=== PATIENT | male | born 1955 | race Caucasian/White ===

== ENCOUNTER → 2021-12-09 16:45 | Outpatient (CLI) | payer BC, SELFPAY ==
--- NOTE | 2021-12-09 16:52 | XR_ITS ---
PROCEDURE INFORMATION: Exam: XR Left Foot Complete; Alignment Exam date and time: 12/09/21 04:53 PM Age: 66 years old Clinical indication: Pain; Foot; Left; Additional info: Pain, hammertoes TECHNIQUE: Imaging protocol: Radiologic exam of the Left foot. Views: 3 or more views. COMPARISON: No relevant prior studies available. FINDINGS: Bones/joints: Hammertoe deformity left 2nd, 3rd, and 4th digits. Osteoarthritic changes in the midfoot and ankle. Soft tissues: Normal. IMPRESSION: 1. Hammertoe deformity left 2nd, 3rd, and 4th digits. 2. Osteoarthritic changes in the midfoot and ankle.
--- NOTE | 2021-12-09 16:52 | XR_ITS ---
PROCEDURE INFORMATION: Exam: XR Right Foot Complete; Alignment Exam date and time: 12/09/21 04:53 PM Age: 66 years old Clinical indication: Pain; Foot; Right; Additional info: Pain, hammertoes TECHNIQUE: Imaging protocol: Radiologic exam of the Right foot. Views: 3 or more views. COMPARISON: No relevant prior studies available. FINDINGS: Bones/joints: Hammertoe deformity 2nd and 3rd PIP joints. Soft tissues: Normal. IMPRESSION: Hammertoe deformity 2nd and 3rd PIP joints.
== END ==
PROVIDERS: PCP Family Medicine; Visit Provider Podiatrist
DX: M79.672 Pain in left foot (principal); M79.671 Pain in right foot; M20.42 Other hammer toe(s) (acquired), left foot; M20.41 Other hammer toe(s) (acquired), right foot
CPT/HCPCS: 73630

== ENCOUNTER → 2021-12-13 10:25 | Outpatient (CLI) | payer BC, SELFPAY ==
--- NOTE | 2021-12-13 10:32 | XR_ITS ---
FINAL REPORT CLINICAL HISTORY: PREOP TESTING FINDINGS: PA and lateral views of the chest are obtained. There is no prior exam for comparison. The cardiac and mediastinal silhouettes are within normal limits. The lungs are clear. There is no pleural effusion, pneumothorax, or acute osseous abnormality. IMPRESSION: No radiographic evidence of acute cardiac or pulmonary disease. Reviewed, Interpreted and Dictated by Shaneka Valencia MD Transcribed by Eileen Arellano Authenticated and [facility]
--- NOTE | 2021-12-13 11:14 | ECG_ITS ---
APPROVED REPORT Exam: Resting ECG HR:52 bpm ECG Measurements Heart Rate 52 AXES CA 214 P 86 QRSd 107 QRS 44 QT 429 T 58 QTc 408 Conclusion SINUS BRADYCARDIA WITH FIRST DEGREE AV BLOCK ABNORMAL ECG UNCONFIRMED REPORT Electronically signed by : Bryan Baker MD 12/14/2021 21:09:21
[2021-12-13 11:20] LABS: Basophils # 0.1 K/mm3 (0-0.2); Basophils % 0.7 % (0.1-2.0); Eosinophils # 0.5 K/mm3 (0.0-0.4); Eosinophils % 6.7 % (0.1-12.0); Hemoglobin 14.6 g/dL (14.1-18.0); Lymphocytes % 26.4 % (10-50); Mean Corpuscular HGB Conc 33.3 g/dL (31.8-35.4); Mean Corpuscular Hemoglobin 29.9 pg (27.0-31.2); Mean Corpuscular Volume 89.9 fl (80-94); Mean Platelet Volume 7.3 fl (7.4-10.4); Monocytes # 0.6 K/mm3 (0.1-1.0); Monocytes % 7.4 % (1.7-9.3); Neutrophils # 4.4 K/mm3 (1.8-7.8); Neutrophils % 58.7 % (37.0-80.0); Platelet Count 251 K/mm3 (142-424); Red Blood Count 4.89 M/mm3 (4.60-6.20); Red Cell Distribution Width 12.6 % (11.5-17.5); White Blood Count 7.6 K/mm3 (4.8-10.8)
[2021-12-13 11:39] LABS: Chloride 105 mmol/L (98-107); Potassium 4.2 mmoL/L (3.5-5.1); Sodium 138 mmol/L (136-145)
[2021-12-13 11:41] LABS: Blood Urea Nitrogen 21 mg/dl (9-20); Estimated Glomerular Filt Rate 113 ml/min (>60); GFR (African American) 137 ML/MIN (>60)
[2021-12-13 11:42] LABS: Alanine Aminotransferase 40 U/L (12-78); Albumin Level 4.2 g/dl (3.5-5.0); Albumin/Globulin Ratio 1.6 (1.1-1.8); Alkaline Phosphatase 55 U/L (38-126); Anion Gap 10.2 mEq/L (5-15); Aspartate Amino Transferase 39 U/L (17-59); Bilirubin,Total 0.5 mg/dl (0.2-1.3); Carbon Dioxide 27 mmol/L (22.0-30.0); Globulin 2.6 g/dL (1.3-3.2); Total Protein,Serum 6.8 g/dl (6.3-8.2)
[2021-12-13 11:48] LABS: Glucose 175 mg/dl (74-100)
[2021-12-13 11:56] LABS: Hemoglobin A1C 6.6 % (4.0-6.0)
[2021-12-13 11:58] LABS: Calcium 9.5 mg/dl (8.4-10.2)
== END ==
PROVIDERS: PCP Family Medicine; Visit Provider Podiatrist
DX: Z01.818 Encounter for other preprocedural examination (principal); M20.41 Other hammer toe(s) (acquired), right foot; M20.42 Other hammer toe(s) (acquired), left foot
CPT/HCPCS: 36415; 71046; 80053; 83036; 85025; 93005

== ENCOUNTER → 2021-12-16 07:43 | Outpatient (CLI) | payer BC, SELFPAY ==
--- NOTE | 2021-12-16 07:45 | US_ITS ---
FINAL REPORT CLINICAL HISTORY: PRE-OP FOR HAMMER TOE SURGERY,DM,BILATERAL REST PAIN,DECREASED PULSES,SKIN COLOR CHANGES,HTN FINDINGS: ANKLE-BRACHIAL PRESSURE INDICES Pressure indices are as follows: RIGHT LOWER EXTREMITY: Ankle-brachial pressure index: 1.31 LEFT LOWER EXTREMITY: Ankle-brachial pressure index: 1.28 CONCLUSION: No evidence of significant obstructive peripheral vascular disease of the lower extremities. Reviewed, Interpreted and Dictated by Shaneka Valencia MD Transcribed by Charissa Saeed Authenticated and [facility]
== END ==
PROVIDERS: PCP Family Medicine; Visit Provider Podiatrist
DX: Z01.818 Encounter for other preprocedural examination (principal)
CPT/HCPCS: 93923

== ENCOUNTER → 2021-12-23 11:54 | Outpatient (CLI) | payer BC, SELFPAY ==
--- NOTE | 2021-12-23 11:54 | NM_ITS ---
APPROVED REPORT Exam: Nuclear Stress Test Indication: HTN, DM, Family history, Pre op Patient Location: Outpatient Stress Tech: Zulma Garces [place] Tech:RUPINDER Antunez RT(R)(N) Ht: 5 ft 11 in Wt: 235 lbs HR: 60 bpm BP: 146/95 mmHg BSA: 2.26 m2 TID: 1.03 BMI: 32.7 History: HTN, DM, Family history, Pre op Procedure: Patient received a 0.4 mg of intravenous Lexiscan, resting heart rate 60 bpm, resting blood pressure 146/95 mmHg, with Lexiscan maximum heart rate achived was 69 bpm which is Less than 85 % of the maximum predicted heart rate and blood pressure was 148/80 mmHg. With Lexiscan, patient denied any complaint of chest pain. Electrocardiogram Resting electrocardiogram sinus rhythm, with Lexiscan there is less than 1.[address] segment depression noted from the baseline EKG. The EKG portion of the Lexiscan is nondiagnostic. Cardiac Stress and Resting SPECT Images: Cardiac Stress and Resting SPECT images were obtained using technetium 99m Myoview 32.8 mCi stress and 10.10 mCi at rest. Gated SPECT analysis of segmental wall motion and calculation of the ejection fraction also done. Prone images were also obtained. Cardiac stress and rest SPECT images show uniform myocardial activity without segmental perfusion abnormality, computer derived ejection fraction is 55% with no regional wall motion abnormality, right ventricle is normal size and contractility. Conclusion: 1. The EKG portion of the Lexiscan is nondiagnostic. 2. No scintigraphic evidence of reversible ischemia seen, compared to ejection fraction 55% with no regional wall motion abnormality, right ventricle is normal size and contractility. 3. Likely normal Lexiscan Myoview study. Electronically signed by : Fabian Samson MD 12/24/2021 14:25:30
--- NOTE | 2021-12-23 13:05 | CA_ITS ---
APPROVED REPORT EXAM: Comprehensive 2D, Doppler, and color-flow Echocardiogram Lumber Sales Supervisor: Lea Rodriguez RT(R) Ht: 5 ft 11 in Wt: 235lbs BSA: 2.26 BP: 146/79 mmHg Indications: pre op for hammertoe repair, Abn EKG, HTN, DM, hyperlipidemia 2D Dimensions LVOT 2.20 cm (M/F) 1.5-2.5 LVEF (Steele's) 59.80 % M: 52 - 72 LV Volume 104.80 mL M: 62 - 150 LV Volume Index 46.37 mL/m2 M: 34 - 74 LA Volume 44.00 mL LA Volume Index 19.46 mL/m2 (M/F) 16-34 M-Mode Dimensions RVDd 2.58 cm (0.9-2.6) LA Diam 4.50 cm (1.9-4.0) LVDd 5.64 cm (3.5-5.7) Ao Diam 3.16 cm (2.0-3.7) LVDs 3.72 cm (3.5-5.7) IVSd 1.31 cm (0.6-1.1) PWd 1.04 cm (0.6-1.1) EF (Teich) 62.30% FS 34.00% EDV (Teich) 156.20 mL ESV (Teich) 58.90 mL LV Diastology E Decel Time 217.00 (160-240 msec) E/A Ratio 0.9 MED E' 6.00 (< 7 cm/sec) E'/MED E' Ratio 12.58 (>14) LAT E' 9.30 (<10 cm/sec) E/LAT E' Ratio 8.12 (>14) Mitral Valve MV E Max Alvaro. 76.00 (40-130 cm/s) MV A Velocity 88.00 (40-130 cm/s) E/A Ratio 0.86 MV Decel. Time 217.00 (160-240 ms) MV PHT 63.00 ms Left Ventricle Left atrium is mildly enlarged, left ventricle is normal size, mild concentric left ventricular hypertrophy, estimated ejection fraction 55% with no regional wall motion abnormality, grade 1 diastolic dysfunction seen without tissue Doppler evidence of raise left atrial pressure. Right Ventricle Right atrium and right ventricle are normal size and contractility. Aortic Valve Aortic valve is minimally thickened and fibrosed there is no aortic stenosis or aortic insufficiency. Mitral Valve Mitral valve is grossly normal, there is trace mitral regurgitation. Tricuspid Valve Tricuspid valve grossly normal, there is trace tricuspid regurgitation, tricuspid regurgitation jet velocity is inadequate for calculation of the right ventricular systolic pressure. Pulmonic Valve Pulmonic valve is poorly visualized. Great Vessels Aortic root is normal size. Inferior vena cava is normal size with normal inspiratory collapse. Pericardium No significant pericardial effusion noted. Conclusion 1. Mildly enlarged left atrium, normal left ventricular size, mild concentric left ventricular hypertrophy, estimated ejection fraction 55% with no regional wall motion abnormality, grade 1 diastolic dysfunction seen without tissue Doppler evidence of raise left atrial pressure. 2. Trace mitral and tricuspid regurgitation. 3. No significant pericardial effusion. 4. No significant pericardial effusion noted. 5. Inferior vena cava normal size with normal inspiratory collapse. Electronically signed by : Fabian Samson MD 12/24/2021 13:49:03
--- NOTE | 2021-12-23 14:09 | CA_ITS ---
APPROVED REPORT Exam: Pharmacologic Technologist: Zulma Young, Ht: 5 ft 11 in Wt: 236 lbs BSA: 2.26 m2 HR: 59 bpm BP: 146/95 mmHg Indications: Pre-OP Medical History Medications: Amlodipine,,,,, Metformin,,,,, Fish Oil,,,,, Naproxen,,,,, Vit D3,,,,, LoraTADINE,,,,, Fluoxetine,,,,, Trazodone,,,,, Terbinafine,,,,, Stress Test Details Test: LEXISCAN Reason for pharmacologic stress test: physical limitation. HR Resting HR: 60 bpm Max Heart Rate (APMHR): 154.408532 bpm Max HR Achieved: 69 bpm Target HR (85% APMHR): 130.190942 bpm % of APMHR: 44.81 Recovery HR: 63 bpm BP Resting BP: 146/95 mmHg Max BP: 148/80 mmHg Recovery BP: 142.0/79.0 mmHg ECG Resting ECG: Sinus darlin otherwise normal Clinical Exercise duration: 04:01 min Highest Stage Achieved: Stress ECG Conclusion Symptoms: Mild SOA. No CP. Arrhythmias/Ectopy: Rare PVC. ST-T Changes: No significant changes. Conclusion: Unremarkable Lexiscan stress. Myoview images reported separately. Test Summary REST . . . . . . . Resting REST 03:24 . . 60 . 146/ 95 . . Stage 1 . . . . . . . Myoview Injected Stage 1 01:00 . . 67 . . . . Stage 2 01:00 . . 66 . 138/ 91 . . Stage 3 01:00 . . 64 . 144/ 76 . . Stage 4 01:00 . . 65 . 145/ 82 . . Stage 4 01:01 . . 65 . 145/ 82 . Stop exercise at 04:01 RECOVERY 01:00 . . 65 . 148/ 80 . . RECOVERY 02:00 . . 63 . 148/ 80 . . RECOVERY 03:00 . . 63 . 142/ 79 . . RECOVERY 03:19 . . 63 . 142/ 79 . . Electronically signed by : Fabian Samson MD 12/24/2021 09:03:26
--- NOTE | 2021-12-23 15:44 | HMH.ITSHM ---
Current Home Medications as stated by this patient Uvaldo Wall or service center representative. []TRAZODONE TERBINAFINE OMEGA 3 NAPROXEN METFORMIN LORATADINE FLUOXETINE VITAMIN D3 AMLODIPINE
== END ==
PROVIDERS: PCP Family Medicine; Visit Provider Physician Assistant
DX: Z01.810 Encounter for preprocedural cardiovascular examination (principal); Z82.49 Family history of ischemic heart disease and other diseases of the circulatory system
CPT/HCPCS: 78452; 93017; 93306; A9502; J2785

== ENCOUNTER → 2021-12-27 09:45 | Outpatient (CLI) | payer BC, SELFPAY | PROVIDERS: PCP Family Medicine; Visit Provider Podiatrist | DX: Z01.812 Encounter for preprocedural laboratory examination (principal); Z20.822 Contact with and (suspected) exposure to COVID-19 | CPT/HCPCS: C9803; U0003; U0005 ==

== ENCOUNTER 2021-12-29 10:49 | Day surgery (SDC) | payer BC, SELFPAY ==
[2021-12-27 11:59] VITALS: BMI 32.8
[2021-12-29] VITALS (11 sets, daily range): BP systolic 127–144; BP diastolic 71–80; PULSE 55–60; RESP 16–18; TEMP 36.2–43; O2SAT 91–93
[2021-12-29 11:18] LABS: POC Glucose,Bedside 111 (70-110)
--- NOTE | 2021-12-29 13:32 | P.PN_ITS ---
[facility] Anesthesia Checklist - Patient Identification Patient Identification: Arm Band - Structural Data Admitted From: Home Planned Operative Procedure/s: Right Foot Hammer Toe Repair Consent for Planned Operative Procedure(s) Verified: Yes Verified Documents: Surgical Consent, History and Physical - NPO Status Verified Time NPO: 00:00 - Additional verifications Anesthesia Reactions: No Hx Blood Transfusions: No Blood Transfusion Reaction: No - Airway Assessment C-Spine Mobility Assessed: Yes (mp2) TMJ Mobility Assessed: Yes Dentition: Good Dentition - Neurological Assessment Level of Consciousness: Awake, Alert - Anesthesia Plan Anesthesia Risk discussed: Yes Anesthesia Plan: Verified ASA Class: II Anesthesia Type: General [facility] History I have reviewed the patient's past medical history: Yes Medical History: Reports:: Cancer, Diabetes Mellitus Type 2, Hyperlipidemia, Hypertension Denies:: Diabetes Mellitus Type 1, Internal Pacemaker, MRSA, Seizures *Have you ever received a pneumonia vaccine?: Yes *Have you received a flu vaccine this season?: Yes Other Medical History: Denies: Blood Transfusion Reaction Anesthesia experience/problems:: nac Laterality Cases: Left: Arthroscopy Shoulder Other Surgeries: Yes: Colonoscopy, Colon Resection. No: Pacemaker Amputation: No Fractures: Yes - *Social History Last grade of school completed: Advanced degree Smoking Status: Never smoker Alcohol Intake: current Alcohol Intake Frequency:: holidays/special occasions only Substance Use Type: denies use *Occupational Status:: employed Housing: house Household Members: spouse *Travel in the last 8 weeks: None Family Hx:: Heart Attack
--- NOTE | 2021-12-29 14:30 | XR_ITS ---
FINAL REPORT CLINICAL HISTORY: Post op hammertoes FINDINGS: RIGHT FOOT: Three views of the right foot were obtained. There are orthopedic wires in the 2nd through 5th digits. There are mild degenerative changes. There are small calcaneal spurs. IMPRESSION: Postoperative and degenerative changes. Reviewed, Interpreted and Dictated by Joseph Green III, MD Transcribed by Zac Blair Authenticated and [facility]
--- NOTE | 2021-12-29 14:35 | XR_ITS ---
FINAL REPORT CLINICAL HISTORY: HAMMERTOE REPAIR TIME-0.12 FINDINGS: Fluoroscopic guidance was provided for the operating services. A single spot film was provided. 12 seconds of fluoroscopy time was utilized. IMPRESSION: 12 seconds of fluoroscopy time. Reviewed, Interpreted and Dictated by Joseph Green III, MD Transcribed by Zac Blair Authenticated and [facility]
--- NOTE | 2021-12-29 14:46 | SUR.OPER ---
1446-family updated at this time
--- NOTE | 2021-12-29 15:08 | HMH.ANESI ---
[facility] Anesthesia Record Part I Intake, IV Amount: 1,300 Estimated blood loss (mL): 5 Urine output (mL): 0 Blood Products used (#): none Blood Pressure: 137/72 SaO2: 91 Pulse Rate: 59 Respiratory Rate: 16 Temperature: 97.4 F Patient is:: Drowsy, Stable Stable to PACU at:: 15:05
--- NOTE | 2021-12-29 15:11 | HMH.OPNOTE ---
Date of procedure: 12/29/21 Pre-op Diagnosis:: 1. Right hammertoes 2-5 2. Pes cavus 3. Equinus Post-op Diagnosis:: Same Procedure performed:: 1. Right 2-4th hammertoe repair (PIPJ arthrodesis) 2. Right 5th hammertoe repair (PIPJ arthroplasty) 3. Right tendo achilles lengthening Surgeon:: Danielle Ridley DPM GEAR CUTTER:: Porter Casiano Anesthesia: GETA, local (20cc 0.5% sherry plain) Estimated blood loss (mL): 20 Clinical Note:: Patient is a 66-year-old diabetic male who presents with pain to both feet and hammertoes. Discussed foot/ankle instability and neurological issues related to pes cavus. The patient has tried modification of shoe gear, taping, strapping, inserts, ice elevation, NSAIDs. After a long discussion with the patient in regards to the conservative versus surgical treatment for the bunion deformity, the patient has elected to proceed with surgery because they have failed conservative treatment and continue to have pain and worsening symptoms affecting daily activities. The patient has been instructed on the planned procedure, all risk versus benefits of the procedure to include bleeding, infection, nerve and blood vessel damage, need for further surgery, delay in healing of soft tissue or bone, failure of bones to heal, non-union, mal-union, prolonged pain and recovery, prolonged swelling, CRPS/RSD, DVT and anesthetic complications. No guarantees were given. All questions fully answered. The patient verbalized understanding and agreed to proceed with surgery. Written consent was obtained. Medical clearance per PCP. Necessary labs and pre-op testing ordered: CBC, CMP, EKG, CXR. Has crutches. Dispensed short fracture boot in office. Operative findings:: Hammertoe contractures noted to digits 2?5. Degenerative changes to the PIPJ's. Adductovarus rotation noted to the fifth digit. Equinus deformity. Toes did reduce out without the need for MPJ releases. Operative note:: On this date and time patient was deemed an appropriate surgical candidate. With informed consent signed, the patient was taken to the operating theater. The patient was positioned supine. General anesthesia was induced. Tourniquet was applied to the right mid-calf. Pre-op right ankle block given with 20 cc 0.5% marcaine plain. Right 2-4 Digit PIPJ AD: The lower extremity was prepped and drapped in normal sterile fashion. Tourniquet inflated at 225mmHg. Attention was directed to the right 2nd toe, where a dorsal linear incision was mapped out over the PIPJ extending distally over the DIPJ. Dissection was carried thru skin and sub q tissue, with care to maintain surgical hemostasis. Transverse tenotomy performed at the PIPJ, with release of the medial and lateral collateral ligaments. The head of the proximal and base of the middle phalanx was removed, exposing good cancellous bone. Identical procedure performed on the 3rd, 4th toes. Wound was flushed with saline. In standard technique a [employer] phalanx implant was inserted without complication. The smooth K wire was left intact retrograded from the tip of the toe to the base of the proximal phalanx for extra stability due to the patient's extensive deformity to prevent postop john. Right 5th Digit PIPJ AP: Attention was directed to the 5th toe, where a wedge was removed full-thickness from the PIPJ. Next a transverse tenotomy was performed at the PIPJ, with release of the medial and lateral collateral ligaments. The head of the proximal phalanx was removed. Utilizing standard technique, the digit was fixed with a 0.9mm smooth K-wire due to poor bone quality. The was flushed with copious amounts of normal sterile saline. The tendons were repaired with 3-0 Vicryl and 4-0 Nylon was used to close skin in an interrupted mattress and simple suture fashion. Right tendo Achilles lengthening: The procedure the equinus deformity was reevaluated. There was still some contracture noted. A second incision was made over the Achilles and
[2021-12-29 15:21] LABS: POC Glucose,Bedside 110 (70-110)
--- NOTE | 2021-12-29 15:27 | SUR.PHASEI ---
1515- blood sugar taken via finger stick at this time- 110 radiology at bedside to take xrays of right ankle at this time
--- NOTE | 2021-12-29 15:36 | SUR.PHASEI ---
1536- detailed report given to adán ventura in post op. Pt left in stable condition.
--- NOTE | 2021-12-30 07:21 | P.PN_ITS ---
[facility] Anesthesia Record Part II Discharge Time: 15:35 Destination: Surgical Day Care (OP Surgery) PACU nurse assessment reviewed?: Yes Patient Condition:: Good Anesthesia Complications:: None Swallowing reflex intact?: Yes Cyanosis?: No Blood Pressure: 134/74 Pulse Rate: 56 Temperature: 97.1 F Mental Status: Alert & Oriented Pain level:: 0 Nausea and/or vomitting:: None Intake, IV Amount: 0
[2021-12-30 07:22] VITALS: BP 134/74; PULSE 56; TEMP 36.2
== END 2021-12-29 16:25 | disposition home or self-care (01) ==
LOC: OR 10:50
PROVIDERS: PCP Family Medicine; Visit Provider Podiatrist
PROC: (CPT 28285; principal; 2021-12-29 12:15)
DX: M20.41 Other hammer toe(s) (acquired), right foot (principal); M21.6X1 Other acquired deformities of right foot; M19.071 Primary osteoarthritis, right ankle and foot; E11.9 Type 2 diabetes mellitus without complications; I10 Essential (primary) hypertension; E78.5 Hyperlipidemia, unspecified; Z79.84 Long term (current) use of oral hypoglycemic drugs
CPT/HCPCS: 28285 ×4; 27685; 73620; 73630; 76000; 82962; C1713; C1769; J2405

== ENCOUNTER → 2022-01-25 09:08 | Outpatient (CLI) | payer BC, SELFPAY ==
--- NOTE | 2022-01-25 09:23 | XR_ITS ---
FINAL REPORT CLINICAL HISTORY: foot pain COMPARISON: December 29, 2021 FINDINGS: RIGHT FOOT Three weight-bearing views of the right foot demonstrate no acute fracture or dislocation. Postoperative changes are again seen in the 2nd through 5th digits with wires present. Bony alignment is stable. There are mild degenerative changes and calcaneal spurs. The soft tissues are unremarkable. IMPRESSION: Postoperative changes 2nd through 5th digits with stable bony alignment. Reviewed, Interpreted and Dictated by Joseph Green III, MD Transcribed by Charissa Saeed Authenticated and [facility]
== END ==
PROVIDERS: PCP Family Medicine; Visit Provider Podiatrist
DX: M79.671 Pain in right foot (principal); Z98.890 Other specified postprocedural states
CPT/HCPCS: 73630

== ENCOUNTER → 2022-02-22 09:38 | Outpatient (CLI) | payer BC, SELFPAY ==
--- NOTE | 2022-02-22 09:45 | XR_ITS ---
FINAL REPORT CLINICAL HISTORY: postop COMPARISON: January 25, 2022 FINDINGS: RIGHT FOOT Three views of the right foot demonstrate postoperative changes again noted in the 2nd through 5th digits. Wires have been removed from 2nd through 5th digits. Bony alignment is stable. There are mild degenerative changes and small calcaneal spurs. The soft tissues are unremarkable. IMPRESSION: Postoperative changes as above. Reviewed, Interpreted and Dictated by Josehp Green III, MD Transcribed by Charissa Saeed Authenticated and [facility]
== END ==
PROVIDERS: Visit Provider Podiatrist
DX: M76.61 Achilles tendinitis, right leg (principal); Z98.890 Other specified postprocedural states
CPT/HCPCS: 73630

== ENCOUNTER 2022-03-09 09:00 | Outpatient (RCR) | payer BC, SELFPAY ==
--- NOTE | 2022-02-25 11:00 | HMH.PTOPEV ---
PT Outpatient Evaluation Rehab PT Outpatient Evaluation Start: 02/25/22 10:13 Freq: Status: Active Protocol: Document 02/25/22 10:46 PJ (Rec: 02/25/22 10:59 RAMIROMARTIN [id number]) E-signed By Rocky Issa, PT Outpatient Therapy Subjective History Subjective History Patient is a 66 year old male presenting to outpatient PT with reports of R foot/ankle pain S/P R hammer toe repair 2 -5 and achilles lengthening. Sx 12/29/21. Main complaint at this time is difficulty walking for prolonged periods because of achilles pain/ tighness, as well as NT in surgical toes. Comorbidities include hx of HTN, HL, diabetes, LUE ORIF, L RCR, diverticulitis and hx of melanoma. Chief Complaint Pain,Stiff,Swelling, Paresthesia Symptom Type Ache,Numbness,Tingling Symptoms Relieved By Rest/Positioning,Ice,OTC Meds Symptoms Aggravated By Standing,Physical Activity, Walking Prior Functional Limitations Standing,Walking Current Functional Limitations Housework,Standing,Walking, Stairs,Balance Symptom Description Intermittent Level of pain today (0-10) 0 Pain scale - at its best (0-10) 0 Pain scale - at its worst (0-10) 7 Ankle/Foot Eval Gait Observation General Gait Pattern Observation Antalgic Gait,Decrease Weight Bear (R) Assistive Device Ambulation Assistive Device None Palpation Tenderness right Ankle/Foot Palpation Findings Tenderness Ankle/Foot Palpation Overall Comment Distal achilles insertion 3/4 ROM Ankle/Foot Dorsiflexion w/Knee Extended 1 Active Range Motion (degrees) Ankle/Foot Plantar Flexion Active Range 52 of Motion (degrees) Ankle/Foot Eversion Active Range of 15 Motion (degrees) Ankle/Foot Inversion Active Range of WNL Motion (degrees) Ankle/Foot ROM Limitations Soft Tissue Tightness Great Toe ROM Reason Not Measured Within Functional Limits MMT Ankle Dorsiflexion Strength Grade 5 Normal Ankle Plantarflexion Strength Grade 5 Normal Foot Eversion Strength Grade 5 Normal Foot Inversion Strength Grade 5 Normal Special Tests Ankle Anterior Drawer Test Negative Right Ankle Eversion Test Negative Right Ankle Posterior Drawer Test Negative Right Foot Interdigital Neuroma Test Negative Righ
== END 2022-03-09 09:05 | disposition home or self-care (01) ==
LOC: PT 09:00
PROVIDERS: PCP Podiatrist; Visit Provider Podiatrist
DX: M76.61 Achilles tendinitis, right leg (principal); Z98.890 Other specified postprocedural states
CPT/HCPCS: 97110; 97140; 97163

== ENCOUNTER → 2022-04-25 10:06 | Outpatient (CLI) | payer MEDICARE, SELFPAY ==
--- NOTE | 2022-04-25 10:14 | XR_ITS ---
FINAL REPORT CLINICAL HISTORY: foot pain COMPARISON: February 22, 2022 FINDINGS: RIGHT FOOT: Three views of the right foot were obtained. Again noted are postoperative changes involving the 2nd 3rd and 4th digits with screws at the proximal interphalangeal joints. There is chronic deformity of the distal aspect of the 5th proximal phalanx which may be postoperative. There is a calcaneal spur. There are mild degenerative changes. There are vascular calcifications. IMPRESSION: Stable findings. Reviewed, Interpreted and Dictated by Joseph Green III, MD Transcribed by Charissa Saeed Authenticated and [facility]
== END ==
PROVIDERS: PCP Family Medicine; Visit Provider Podiatrist
DX: S86.011A Strain of right Achilles tendon, initial encounter (principal)
CPT/HCPCS: 73630

== ENCOUNTER → 2022-05-05 16:08 | Outpatient (CLI) | payer MEDICARE, SELFPAY ==
--- NOTE | 2022-05-05 16:09 | MR_ITS ---
PROCEDURE INFORMATION: Exam: MR Right Lower Extremity Joint Without Contrast; Ankle Exam date and time: 05/05/2022 4:16 PM Age: 67 years old Clinical indication: Pain; Ankle; Right; Prior surgery; Additional info: Tendon strain vs partial tear. Prior surgery hammertoe in right foot. Posterior ankle pain and swelling. TECHNIQUE: Imaging protocol: Magnetic resonance imaging of the Right lower extremity without contrast. Exam focused on the ankle. COMPARISON: US ARTERIAL LOWER EXT REST 12/16/2021 8:03 AM FINDINGS: Bones and cartilage: Calcaneal spurs are visualized. A multiloculated cystic collection of fluid is identified plantar medial to the 1st metatarsal-tarsal joint. This measures 2.7 x 2.6 x 0.4 cm. This is suggestive of a ganglion cyst. Dorsal spurring of the midfoot. Degenerative spurring is seen at the tibiotalar joint. Degenerative spurring is seen of the medial and lateral malleoli as well as the adjacent talus. Subtalar degenerative changes are seen. Magnetic susceptibility postoperative changes are visualized involving the 2nd through 4th digits. Evaluation of the digits is significantly limited on this study. A subcentimeter nonspecific sclerotic lesion is identified within the talar head. Mildly prominent vascular markings are identified within the medial aspect of the calcaneus. Marrow edema is considered less likely. No dislocation of the ankle. Joint spaces: Small tibiotalar joint effusion. Minimal subtalar joint effusion. LIGAMENTS: Distal tibiofibular syndesmosis: No visualized tear. Anterior talofibular ligament: The anterior talofibular ligament is poorly visualized with fluid in this region. This is consistent with tear. Posterior talofibular ligament: No visualized tear. Calcaneofibular ligament: Minimal edema/fluid is seen adjacent to the calcaneofibular ligament. Ligament sprain cannot be excluded. Deltoid ligament complex: No visualized tear. TENDONS: Flexor tendons of foot: Unremarkable as visualized. Tibialis posterior tendon: See Peroneal tendons finding. Peroneal tendons: Minimal tenosynovitis of the peroneal tendons. Mild tenosynovitis of the posterior tibialis tendon. Extensor tendons of foot: Unremarkable as visualized. Tibialis anterior tendon: Unremarkable as visualized. Achilles tendon: There is a segment of abnormal signal intensity consistent with high-grade partial tear involving the Achilles tendon measuring 3.7 cm in length. Thickening of this tendon is identified proximally and distally to this segment of tear, likely due to retraction of fibers. Fluid is also noted in this region. Tarsal canal (Sinus tarsi): Edema is noted within the sinus tarsi. Small cystic collections of fluid are identified adjacent to the anterior talus and extending into the sinus tarsi, likely representing ganglion cysts. Muscles: No visualized acute abnormality. Soft tissues: Soft tissue swelling of the ankle and dorsum of the foot. There is an additional multiloculated cystic collection of fluid/ganglion cyst is visualized medial to the posterior aspect of the calcaneus. This measures 1.9 x 1.0 x 0.6 cm. Plantar fascia: Intact, as visualized. IMPRESSION: 1. High-grade partial tear involving the Achilles tendon. Thickening of this tendon is identified proximally and distally to this tear, likely due to retraction of fibers. 2. Anterior talofibular ligament tear. 3. Small tibiotalar joint effusion. Minimal subtalar joint effusion. 4. Soft tissue swelling of the ankle and dorsum of the foot. 5. A multiloculated cystic collection of fluid is identified plantar medial to the 1st metatarsal-tarsal joint. This is suggestive of a
== END ==
PROVIDERS: PCP Family Medicine; Visit Provider Podiatrist
DX: M25.371 Other instability, right ankle (principal); M25.571 Pain in right ankle and joints of right foot
CPT/HCPCS: 73721

== ENCOUNTER 2022-06-07 08:56 | Outpatient (RCR) | payer MEDICARE, SELFPAY | END 2022-06-07 08:59 | disposition home or self-care (01) | LOC: PT 08:56 | PROVIDERS: PCP Family Medicine; Visit Provider Podiatrist | DX: M25.571 Pain in right ankle and joints of right foot (principal); M25.371 Other instability, right ankle; M79.671 Pain in right foot ==

== ENCOUNTER 2022-08-16 13:58 | Emergency (ER) | payer MEDICARE, OTHER, SELFPAY ==
[2022-08-16 14:20] VITALS: BP 159/75; PULSE 58; RESP 20; TEMP 36.4; O2SAT 97; BMI 31.6
--- NOTE | 2022-08-16 14:57 | EXP.UTC ---
Discharge Plan Disposition Patient Disposition: Home, Self-Care Condition: Good Prescriptions Prescriptions: New fluticasone propionate [Flonase Allergy Relief] 50 mcg/actuation spray,suspension 1 - 2 spray intranasal DAILY Qty: 16 0RF Rx Instructions: administer into each nostril amoxicillin-pot clavulanate 875-125 mg Tablet 1 tab PO Q12H Qty: 20 0RF No Action amlodipine 5 mg tablet 5 mg PO ONCE trazodone 100 mg tablet 100 mg PO QHS PRN (Reason: Insomnia) metformin 850 mg tablet 850 mg PO DAILY Label Comments: TAKE 1 TABLET BY MOUTH ONCE DAILY naproxen 500 mg tablet 500 mg PO BID Label Comments: TAKE 1 TABLET BY MOUTH TWICE DAILY rosuvastatin 10 mg tablet 10 mg PO HS Label Comments: TAKE 1 TABLET BY MOUTH NIGHTLY fluoxetine 20 mg capsule 20 mg PO DAILY Label Comments: TAKE 1 CAPSULE BY MOUTH ONCE DAILY azelastine 137 mcg (0.1 %) aerosol,spray 2 spray intranasal BID Label Comments: USE 1 SPRAY(S) IN EACH NOSTRIL TWICE DAILY DIRECTED losartan 100 MG tablet 100 mg PO DAILY fluticasone propionate 9.9 ML spray,suspension 4 sprays IH DAILY atomoxetine 25 MG capsule 25 mg PO DAILY albuterol sulfate 90 MCG aerosol powdr breath activated 90 mcg IH QID PRN (Reason: allergy) Referrals Follow up/Referrals: Vahe Wolfe II, MD [Primary Care Provider] - See instructions Activity Restrictions/Add. Instructions Additional Instructions/Restrictions: *Monitor Temp, Over the counter Motrin or Tylenol as directed/as needed Tylenol every 4 hours and Motrin every 6 hours (as long as your family doctor has told you that you can take it) for fever or pain. and straight to ER if unable to lower temp less than 101.0 after medication given Take medication as prescribed? *Warm fluids like tea with honey may help to soothe the throat and help with nasal congestion? *Sleep elevated *Humidifier/Vaporizer *Flonase 2 sprays in each nostril daily but be aware that it may take 2-3 days before you notice improvement Follow up IMMEDIATELY for new or worsening symptoms or no Noticeable improvement over the next 48-72 hours. 911 for difficulty breathing or swallowing Clinical Impressions Clinical Impression: Sinusitis Instructions Patient Instructions: DI for Sinusitis, Sinusitis Discharge ED Provider: Yvette Zaidi [facility] General Stated complaint: Head Congestion Headache Mode of Arrival: Ambulatory Source of Information: Patient Limitations: No Limitations Time Seen by Provider: 08/16/22 15:00 Description of Symptoms (Recalled from Triage Doc. by RN): PATIENT C/O SINUS PRESSURE, HEADACHE, AND LEFT EAR PAIN X 3 DAYS HEENT Symptoms (Recalled from RN notes): Yes Resp Symptoms (Recalled from RN notes): No Skin Symptoms (Recalled from RN notes): No MS Symptoms (Recalled from RN notes): No Functional Status (Recalled from RN notes): WNL History of Present Illness Provider Complaint: Patient states that he feels like he has a bad sinus infection States that he has been having sinus pain and pressure, pain in left ear and sinus headache States that he started about a week ago but got worse in the last few days States that today his pressure was getting worse so he came in Related Data Home Medications Medication Instructions Recorded Confirmed amlodipine 5 mg tablet 5 mg PO ONCE High blood pressure 12/01/17 06/13/22 trazodone 100 mg tablet 100 mg PO QHS PRN Insomnia 12/01/17 06/13/22 metformin 850 mg tablet 850 mg PO DAILY Diabetes 12/16/21 06/13/22 albuterol sulfate 90 mcg/actuation 90 mcg inhalation QID PRN allergy 12/29/21 06/13/22 breath activated powder inhaler atomoxetine 25 mg capsule 25 mg PO DAILY . 12/29/21 06/13/22 fluticasone propionate 50 4 sprays inhalation DAILY Allergy 12/29/21 06/13/22 mcg/actuation nasal symptoms spray,suspension losartan 100 mg tablet 100 mg PO
[2022-08-16 15:14] VITALS: BP 159/75; PULSE 58; RESP 20; TEMP 36.4; O2SAT 97
== END 2022-08-16 15:15 | disposition home or self-care (01) ==
PROVIDERS: Emergency Provider Nurse Practitioner; PCP Family Medicine
DX: E11.9 Type 2 diabetes mellitus without complications (principal); I10 Essential (primary) hypertension; E78.5 Hyperlipidemia, unspecified

== ENCOUNTER → 2022-11-03 15:46 | Outpatient (CLI) | payer MEDICARE, OTHER, SELFPAY | PROVIDERS: Visit Provider Nurse Practitioner Family | DX: L60.0 Ingrowing nail (principal); M79.674 Pain in right toe(s) | CPT/HCPCS: 87102; 87206; 87220 ==